=== PATIENT | female | born 1950 | race Caucasian/White ===

== ENCOUNTER 2017-03-04 12:58 | Inpatient (IN) ==
[2017-03-04] MEDS ORDERED: Ampicillin/Sulbactam 3,000 MG in 0.9 % Sodium Chloride Mini Bag 100 ML IVPB ONE (15:01)
[2017-03-04] MEDS ORDERED: Vancomycin 1,000 MG in D5% in Water 250 ML IVPB ONE (15:01)
--- NOTE | 2017-03-04 15:03 | Emergency Department Note ---
Disposition Clinical Impression: Dog bite of extremity Disposition: Admitted As Inpatient Condition: Fair Referrals: Christiano Ritchie MD [Primary Care Provider] - Time of Disposition: 15:20 ([facility]) Upper Extremity HPI - General Stated Complaint: dog bite R hand Time Seen by Provider: 03/04/17 14:50 Source: patient Mode of arrival: ambulatory Limitations: age Nursing Notes Reviewed: Yes Vital Signs Reviewed: Yes - History of Present Illness HPI Narrative: Patient bitten by her dog yesterday evening on the right hand now has red hot swollen hand with streaking up the arm has swelling and edema in the hand has little bit of decreased minimal range of motion but still has sensation intact patient states that it is not getting any better she thinks it may be infected as result she is here she does tell me that she has been chilling and fever and today Injury Location: Right: hand Onset (ago): day(s) Other Injuries: none Handedness: right Place: home, outdoors Pain Severity: moderate, severe Pain Scale: 8 Improves with: nothing Worsens with: movement of extremity, Palpation Context: animal bite Associated symptoms: Reports: swelling - Related Data Home Medications Medication Instructions Recorded Confirmed Losartan/Hydrochlorothiazide 1 each PO DAILY 01/08/16 03/04/17 [Hyzaar 100-12.5 Tablet] ALPRAZolam [Xanax 0.25 MG Tablet] 0.25 mg PO DAILY PRN 12/31/16 03/04/17 Amlodipine Besylate 2.5 mg PO DAILY 12/31/16 03/04/17 Celecoxib [Celebrex] 100 mg PO DAILY 12/31/16 03/04/17 Citalopram [CeleXA] 20 mg PO DAILY 12/31/16 03/04/17 Diclofenac Sodium [Voltaren] 100 gm TP QID PRN 12/31/16 03/04/17 Ezetimibe [Zetia] 10 mg PO QPM 12/31/16 03/04/17 Isosorbide MONOnitrate (24 HR) 30 mg PO DAILY 12/31/16 03/04/17 [Imdur] Metformin HCl [Glucophage Xr] 500 mg PO HS 12/31/16 03/04/17 Metoprolol XL (24 HR) Succ [Toprol 25 mg PO DAILY 12/31/16 03/04/17 Xl] Nitroglycerin 0.4 mg SL DAILY PRN 12/31/16 03/04/17 Omeprazole [PriLOSEC] 20 mg PO DAILY 12/31/16 03/04/17 Potassium Chloride [Klor-Con 10 meq PO BID 12/31/16 03/04/17 Sprinkle] Quetiapine Fumarate [Seroquel] 25 mg PO HS 12/31/16 03/04/17 Simvastatin [Zocor] 40 mg PO HS 12/31/16 03/04/17 Tramadol HCl [Ultram] 50 mg PO BID PRN 12/31/16 03/04/17 Allergies Allergy/AdvReac Type Severity Reaction Status Date / Time Sulfa (Sulfonamide AdvReac Nausea Verified 12/31/16 08:39 Antibiotics) Review of Systems: As Per HPI Constitutional: Reports: fever, weakness. Denies: chills Eyes: Denies: eye pain, eye discharge ENT ED: Denies: ear pain, throat pain Cardiovascular: Denies: chest pain, palpitations Respiratory: Denies: cough, dyspnea, wheezes Gastrointestinal: Denies: abdominal pain, nausea, vomiting Genitourinary: Denies: urgency, dysuria Musculoskeletal: Reports: joint swelling Integumentary: Reports: lesions Neurological: Denies: headache Psychiatric: Denies: anxiety Endocrine: Denies: fatigue Hematological/Lymphatic: Denies: easy bleeding Allergic/Immunologic: Denies: facial swelling Past Medical History - Past Medical History Attestation: Yes The following information was validated with the patient. Source: patient, old records reviewed, nursing notes reviewed Medical history: Reports: COPD, coronary artery disease, diabetes, GERD, hyperlipidemia, hypertension Surgical history: Reports: carotid endarterectomy, hysterectomy, orthopedic, other Psychiatric history: Reports: no psych history [employer] WORK[employer] history: Reports: no [employer] WORKER history - Social History Smoking Status: Former smoker Smokeless Tobacco Status: No Alcohol use: Reports: none Drug use: Reports: none Physical Exam - General Limitations: no limitations General appearance: alert, in no apparent distress, anxious - Head Head exam: atraumatic, normocephalic, normal inspection - Eye Eye exam: Present: normal appearance, PERRL, EOMI - ENT ENT exam: normal exam, normal oropharynx, mucous membranes moist, normal external ear exam - Neck Neck exam: Present: normal inspection, full ROM, trachea midline - Chest Chest inspection: Present: normal inspection, symmetric chest wall rise - Respiratory Respiratory exam: Present: normal lung sounds bilaterally - Cardiovascular Cardiovascular exam: Present: regular rate, normal rhythm, normal heart sounds - Abdominal Exam Abdominal exam: Present: soft, Non-Tender, normal bowel sounds. Absent: mass, pulsatile mass - Expanded Upper Extremity Exam Shoulder exam: Present: normal inspection, full ROM Arm exam: Present: normal inspection, full ROM Elbow exam: Present: normal inspection, full ROM, swelling, erythema Forearm/Wrist exam: Present: normal inspection, full ROM, swelling, erythema Hand exam: Present: normal inspection, full ROM, swelling, erythema, other ( Patient has full range of motion of both hands but has swelling and edema of the thenar eminence the thumb extending up the radial aspect of the forearm on the right hand side in comparison to the left it is consistent with the area of dog bite and cellulitis) Hand L/R front image: 1 - other (two puncture wound) Hand L/R back image: 1 - 2 puncture wounds 2 - Redness swelling and edema of the radial aspect of the hand and arm Neurosensory exam: Normal: radial nerve, ulnar nerve, median nerve Vascular exam: Normal: capillary refill, radial pulse, ulnar pulse - Expanded Lower Extremity Exam Hip/Pelvis exam: Present: normal inspection, full ROM Upper leg exam: Present: normal inspection, full ROM Knee exam: Present: normal inspection, full ROM Lower leg exam: Present: normal inspection, full ROM Ankle exam: Present: normal inspection, full ROM Foot/toe exam: Present: normal inspection, full ROM Neurovascular/Tendon exam: Present: normal capillary refill, normal fine/light touch. Absent: motor deficit, sensory deficit, tendon deficit Gait: observed and normal - Back Exam Back exam: Present: normal inspection, full ROM. Absent: muscle spasm - Neurological Exam Neurological exam: Present: alert, oriented X3, CN II-XII intact - Psychiatric Psychiatric exam: Present: normal affect, normal mood - Skin Skin exam: Present: warm, dry, intact, normal color Course Course Narrative: Seen and examined started on Unasyn and vancomycin will discuss with the hospitalist for admission - Reevaluation(s) Reevaluation #1: Spoke with Dr. Rutledge will repeat labs in the morning and if not showing any improvement then may have to transfer or consult orthopedics if continues to show further worsening patient is understanding admitted here Vital Signs Temperature 100.8 F H 03/04/17 15:07 Pulse Rate 80 03/04/17 15:07 Respiratory Rate 16 03/04/17 15:07 Blood Pressure 147/61 03/04/17 15:07 O2 Sat by Pulse Oximetry 96 03/04/17 15:07 Temperature 100.8 F H 03/04/17 15:07 Pulse Rate 80 03/04/17 15:07 Respiratory Rate 16 03/04/17 15:07 Blood Pressure 147/61 03/04/17 15:07 O2 Sat by Pulse Oximetry 96 03/04/17 15:07 Oxygen Delivery Oxygen Delivery Room Air Extremity Injury, Upper - Differential Diagnosis Differential Diagnosis: Likely: puncture wound - Medical Records Medical records reviewed: Yes I reviewed the patient's medical records. - Lab Data Lab results reviewed: Yes I reviewed the patient's lab results. Critical Care Time Critical Care Time: No
[2017-03-04 15:24] LABS: Basophils # 0.1 K/mcL (0.0-0.2); Basophils % 0.3 %; Eosinophils # 0.3 K/mcL (0.0-0.6); Eosinophils % 1.5 %; Hematocrit 40.1 % (35.3-44.9); Hemoglobin 13.6 g/dL (11.5-15.4); Immature Granulocytes % 0.5 % (0-4); Lymphocytes # 1.5 K/mcL (0.6-4.6); Lymphocytes % 8.5 %; Mean Corpuscular HGB Conc 33.9 g/dL (31.6-35.5); Mean Corpuscular Volume 94.4 fL (83.0-100.0); Mean Platelet Volume 10.3 fL (9.4-12.4); Monocytes # 1.5 K/mcL (0.0-1.3); Monocytes % 8.9 %; Platelet Count 219 K/mcL (140-400); Red Blood Count 4.25 M/mcL (3.82-4.97); Red Cell Distribution Width 12.6 % (11.5-14.5); Segmented Neutrophils % 80.3 %
[2017-03-04 15:32] LABS: Neutrophils # 13.7 K/mcL (1.6-8.9)
[2017-03-04 15:42] LABS: BUN/Creatinine Ratio 22 (6-26); Blood Urea Nitrogen 23 mg/dL (7-20); Calcium 10.4 mg/dL (8.6-10.8); Carbon Dioxide 29 mEq/L (19-29); Chloride 103 mEq/L (98-109); Glucose 97 mg/dL (70-99); Osmolality,Calculated 298 (280-300); Potassium 3.7 mEq/L (3.5-4.5); Sodium 142 mEq/L (136-145); eGFR For African Americans > 60 (> 60); eGFR For Non-African Americans 53 (> 60)
[2017-03-04] MEDS ORDERED: Ondansetron 4 MG/2 ML VIAL IVP PRN (16:45)
[2017-03-04] MEDS ORDERED: Acetaminophen 325 MG TABLET PO PRN (16:45)
[2017-03-04] MEDS ORDERED: Nitroglycerin 0.4 MG TAB.SUBL SL PRN (16:45)
[2017-03-04] MEDS ORDERED: Naloxone 0.4 MG/ML INJ IVP PRN (16:45)
[2017-03-04] MEDS: (Ezetimibe [Zetia] 10 MG) PO SCH (18:28)
[2017-03-04] MEDS: traMADol 50 MG TABLET PO PRN (18:30)
[2017-03-04] MEDS: *HR* Metformin 500 MG TABLET PO SCH (20:19)
[2017-03-04] MEDS: ALPRAZolam 0.25 MG TABLET PO PRN (20:20)
[2017-03-05] MEDS: traMADol 50 MG TABLET PO PRN ×3 (03:48→20:38)
[2017-03-05 05:38] LABS: Basophils % 0.3 %; Eosinophils # 0.4 K/mcL (0.0-0.6); Eosinophils % 2.7 %; Hematocrit 35.8 % (35.3-44.9); Hemoglobin 11.9 g/dL (11.5-15.4); Immature Granulocytes % 0.3 % (0-4); Lymphocytes # 1.5 K/mcL (0.6-4.6); Lymphocytes % 10.1 %; Mean Corpuscular HGB Conc 33.2 g/dL (31.6-35.5); Mean Corpuscular Hemoglobin 31.6 pg (28.0-33.3); Monocytes # 1.4 K/mcL (0.0-1.3); Monocytes % 9.6 %; Neutrophils # 11.1 K/mcL (1.6-8.9); Platelet Count 195 K/mcL (140-400); Red Blood Count 3.77 M/mcL (3.82-4.97); Red Cell Distribution Width 12.9 % (11.5-14.5)
[2017-03-05 05:50] LABS: Calcium 9.3 mg/dL (8.6-10.8); Potassium 3.5 mEq/L (3.5-4.5)
[2017-03-05] MEDS: amLODIPine 5 MG TABLET PO SCH (08:06)
[2017-03-05] MEDS: Metoprolol XL (24 HR) Succ 25 MG TAB.ER.24H PO SCH (08:06)
[2017-03-05] MEDS: Losartan/HCTZ 50-12.5 TABLET PO SCH (08:06)
[2017-03-05] MEDS: Isosorbide MONOnitrate (24 HR) 30 MG TAB.ER.24H PO SCH (08:08)
[2017-03-05] MEDS: Celecoxib 100 MG CAPSULE PO SCH (09:21)
[2017-03-05] MEDS: Ibuprofen 400 MG TABLET PO PRN ×3 (09:22→22:50)
--- NOTE | 2017-03-05 10:23 | Internal Med History&Physical ---
Date of Encounter: 03/05/17 Time of Encounter: 10:21 Assessment and Plan (1) Dog bite of extremity Current visit: Yes Status: Acute Patient had some infection started with erythema swelling the temperature increased white count was started on IV antibiotics and is already improved we will try at least 24 hours more of IV antibiotics and then switch her to by mouth discharge. Internal Medicine - H&P: HPI Chief complaint: Patient suffered a dog bite and she had erythema and fever yesterday. Admitted From: Emergency Dept Plans for Post Hospital Care: Home History of present illness: Ms. Lees is a 66 year old female [place] dog bite by her dog. She states that shots were up-to-date. She had redness swelling and fever when she presented to the emergency room with an increased white count. She was started on IV antibiotics. Is already improved Past Med Surg Social Fam HX - Past Medical History Medical history: COPD, coronary artery disease, diabetes, GERD, hyperlipidemia, hypertension Psychiatric history: no psych history - Past Surgical History Surgical History: carotid endarterectomy, hysterectomy, orthopedic, other - Social History Smoking Status: Former smoker Smokeless Tobacco Status: No Alcohol use: none Drug use: none - Family History Mother Living Status: Hx Family Cardiac Disorders: Yes ([place]) Father Living Status: Hx Family Cardiac Disorders: Yes ([place]) Internal Medicine - H&P: Meds Losartan/Hydrochlorothiazide [Hyzaar 100-12.5 Tablet] 1 each PO DAILY 01/08/16 [ History] ALPRAZolam [Xanax 0.25 MG Tablet] 0.25 mg PO DAILY PRN 12/31/16 [History] Amlodipine Besylate 2.5 mg PO DAILY 12/31/16 [History] Celecoxib [Celebrex] 100 mg PO DAILY 12/31/16 [History] Citalopram [CeleXA] 20 mg PO DAILY 12/31/16 [History] Diclofenac Sodium [Voltaren] 100 gm TP QID PRN 12/31/16 [History] Ezetimibe [Zetia] 10 mg PO QPM 12/31/16 [History] Isosorbide MONOnitrate (24 HR) [Imdur] 30 mg PO DAILY 12/31/16 [History] Metformin HCl [Glucophage Xr] 500 mg PO HS 12/31/16 [History] Metoprolol XL (24 HR) Succ [Toprol Xl] 25 mg PO DAILY 12/31/16 [History] Nitroglycerin 0.4 mg SL DAILY PRN 12/31/16 [History] Omeprazole [PriLOSEC] 20 mg PO DAILY 12/31/16 [History] Potassium Chloride [Klor-Con Sprinkle] 10 meq PO BID 12/31/16 [History] Quetiapine Fumarate [Seroquel] 25 mg PO HS 12/31/16 [History] Simvastatin [Zocor] 40 mg PO HS 12/31/16 [History] Tramadol HCl [Ultram] 50 mg PO BID PRN 12/31/16 [History] 3 Allergy/AdvReac Type Severity Reaction Status Date / Time Sulfa (Sulfonamide AdvReac Nausea Verified 12/31/16 08:39 Antibiotics) All Systems PM: A 10-system review of systems was performed and is negative for pertinent findings except as documented above in the HPI. - Constitutional Vitals: Temp Pulse Resp BP Pulse Ox 98.5 F 100 16 105/63 95 03/05/17 07:55 03/05/17 07:55 03/05/17 07:55 03/05/17 07:55 03/05/17 07:55 - Head Head exam: Present: atraumatic, normal inspection, normocephalic - Neck Neck exam general surgery: Present: supple, trachea midline. Absent: lymphadenopathy - Respiratory Respiratory exam: Present: CTAB. Absent: accessory muscle use, rales, rhonchi, wheezes - Cardiovascular Cardiovascular exam: Present: RRR, +S1, +S2. Absent: diastolic murmur, gallop, rubs, systolic murmur Internal Med - H&P Results - Labs CBC & Chem 7: 03/05/17 05:05 03/05/17 05:05 Labs: Short CBC 03/05/17 Range/Units 05:05 WBC 14.4 H (4.3-11.1) K/mcL Hgb 11.9 D (11.5-15.4) g/dL Hct 35.8 (35.3-44.9) % Plt Count 195 (140-400) K/mcL Neutrophils # 11.1 H (1.6-8.9) K/mcL BMP 03/05/17 05:05 Sodium 141 Potassium 3.5 Chloride 107 Carbon Dioxide 24 BUN 23 H Creatinine 1.10 Glucose 101 H Calcium 9.3 White count is down temperatures down
[2017-03-05] MEDS: Ampicillin/Sulbactam 3,000 MG in 0.9 % Sodium Chloride Mini Bag 100 ML IVPB SCH ×3 (11:38→22:51)
[2017-03-05] MEDS ORDERED: Vancomycin 1,250 MG in D5% in Water 250 ML IVPB SCH (16:00)
[2017-03-05] MEDS: (Ezetimibe [Zetia] 10 MG) PO SCH (18:49)
[2017-03-05] MEDS: ALPRAZolam 0.25 MG TABLET PO PRN (20:37)
[2017-03-05] MEDS: *HR* Metformin 500 MG TABLET PO SCH (20:37)
[2017-03-06] MEDS: Ampicillin/Sulbactam 3,000 MG in 0.9 % Sodium Chloride Mini Bag 100 ML IVPB SCH ×2 (06:05→11:48)
[2017-03-06] MEDS: traMADol 50 MG TABLET PO PRN (06:05)
[2017-03-06 09:02] VITALS: BP 126/70
[2017-03-06] MEDS: Isosorbide MONOnitrate (24 HR) 30 MG TAB.ER.24H PO SCH (09:30)
[2017-03-06] MEDS: Losartan/HCTZ 50-12.5 TABLET PO SCH (09:30)
[2017-03-06] MEDS: Celecoxib 100 MG CAPSULE PO SCH (09:30)
[2017-03-06] MEDS: Metoprolol XL (24 HR) Succ 25 MG TAB.ER.24H PO SCH (09:30)
[2017-03-06] MEDS: amLODIPine 5 MG TABLET PO SCH (09:31)
[2017-03-06 11:14] LABS: Basophils % 0.4 %; Eosinophils # 0.6 K/mcL (0.0-0.6); Eosinophils % 6.1 %; Hematocrit 34.4 % (35.3-44.9); Hemoglobin 11.6 g/dL (11.5-15.4); Immature Granulocytes % 0.3 % (0-4); Lymphocytes # 1.5 K/mcL (0.6-4.6); Mean Corpuscular HGB Conc 33.7 g/dL (31.6-35.5); Mean Corpuscular Hemoglobin 32.1 pg (28.0-33.3); Mean Corpuscular Volume 95.3 fL (83.0-100.0); Mean Platelet Volume 10.5 fL (9.4-12.4); Monocytes # 1.1 K/mcL (0.0-1.3); Monocytes % 10.3 %; Neutrophils # 7.1 K/mcL (1.6-8.9); Platelet Count 219 K/mcL (140-400); Red Blood Count 3.61 M/mcL (3.82-4.97); Red Cell Distribution Width 12.5 % (11.5-14.5); Segmented Neutrophils % 68.9 %
[2017-03-06] MEDS: Ibuprofen 400 MG TABLET PO PRN (11:34)
--- NOTE | 2017-03-06 13:57 | Discharge Summary ---
Date of Encounter: 03/06/17 Time of Encounter: 13:55 - Discharge Diagnosis (1) Dog bite of extremity Priority: Primary Status: Acute - Discharge Medications Home Medications: Losartan/Hydrochlorothiazide [Hyzaar 100-12.5 Tablet] 1 each PO DAILY 01/08/16 [ History] ALPRAZolam [Xanax 0.25 MG Tablet] 0.25 mg PO DAILY PRN 12/31/16 [History] Amlodipine Besylate 2.5 mg PO DAILY 12/31/16 [History] Celecoxib [Celebrex] 100 mg PO DAILY 12/31/16 [History] Citalopram [CeleXA] 20 mg PO DAILY 12/31/16 [History] Diclofenac Sodium [Voltaren] 100 gm TP QID PRN 12/31/16 [History] Ezetimibe [Zetia] 10 mg PO QPM 12/31/16 [History] Isosorbide MONOnitrate (24 HR) [Imdur] 30 mg PO DAILY 12/31/16 [History] Metformin HCl [Glucophage Xr] 500 mg PO HS 12/31/16 [History] Metoprolol XL (24 HR) Succ [Toprol Xl] 25 mg PO DAILY 12/31/16 [History] Nitroglycerin 0.4 mg SL DAILY PRN 12/31/16 [History] Omeprazole [PriLOSEC] 20 mg PO DAILY 12/31/16 [History] Potassium Chloride [Klor-Con Sprinkle] 10 meq PO BID 12/31/16 [History] Quetiapine Fumarate [Seroquel] 25 mg PO HS 12/31/16 [History] Simvastatin [Zocor] 40 mg PO HS 12/31/16 [History] Tramadol HCl [Ultram] 50 mg PO BID PRN 12/31/16 [History] Allergies/Adverse Reactions: 3 Allergy/AdvReac Type Severity Reaction Status Date / Time Sulfa (Sulfonamide AdvReac Nausea Verified 12/31/16 08:39 Antibiotics) Date of admission: 03/05/17 13:53 Primary care physician: Christiano Ritchie MD Discharging clinician: Panda Rutledge Anticipated date of discharge: 03/06/17 - Patient Status Disposition: Home, Self-Care Condition: Good Functional capacity at discharge: independent ambulation Overall status at discharge: patient is progressing back to baseline - Discharge Instructions Instructions: Animal Bite (DC) Follow Up With: prashant ritchie [Other] - 03/08/17 9:45 am (follow up appointment) Forms: ED Satisfaction Letter Additional Instructions: Follow-up appointments: If there is not an appointment listed below, please call your physician and schedule a follow-up appointment. If you have congestive heart failure and your symptoms return, make an appointment with your physician. Medication List: Carry an up to date list of medications you are taking at all time. We have given you an updated medication list including any new medications that you have been prescribed. Please provide that list to your primary provider Symptoms: If your condition changes or you experience any of the following symptoms, notify your physician immediately: Unusual or worsening pain, fever, persistent nausea and vomiting, bleeding, increase in swelling (especially in your legs), sudden weight gain, extreme dizziness, chest pain, increased drainage or redness from a wound or incision. Go to the emergency department if you experience a problem with breathing. Weights: If you have a history of swelling or shortness of breath, weigh yourself daily and notify your physician if you have a weight gain of two or more pounds in one day or 5 or more pounds in a week. If you experience any of the warning signs for stroke: Sudden numbness or weakness of the face, arm or leg; especially on one side of the body, sudden confusion, trouble speaking or understanding, sudden trouble seeing in one or both eyes, sudden trouble walking, dizziness, loss of balance or coordination, sudden sever headache with no cause; Call 911 or go to the emergency room. Stroke is a medical emergency. Some risk factors for stroke: Age, cigarette smoking, diabetes, excessive alcohol consumption, family history , high blood pressure, overweight, physical inactivity, prior stroke, heart attack, diagnosis of carotid artery stenosis or other artery disease. If you smoke, STOP: Smoking or tobacco use significantly increases your risk of heart and lung disease. Your chance of disease greatly increases if you continue to smoke. For more information, call the [place] tobacco quit line for smoking cessation - QUIT-NOW ( ) - Diet and Activity Activity: return to work once cleared by your PCP/specialist Diet: advance to your usual diet Interval History: Patient presented to the emergency room about 24 hours postop bite. She had a low-grade temperature white count and tenderness with erythema. She probably also had a little bit of lymphadenopathy. Hospital course: Ms. Lees is a 66 year old female She received IV antibiotics for 48 hours at a dose today prior to discharge. I am sending her home on Augmentin by mouth twice a day for week the redness has resolved the temperature is resolved white counts down and there is just some minimal swelling. - Time Spent with Patient Total time spent providing and/or coordinating discharge services: Less than 30 minutes - Constitutional Vitals: Temp Pulse Resp BP Pulse Ox 97.5 F L 69 16 126/70 95 03/06/17 09:01 03/06/17 09:01 03/06/17 09:01 03/06/17 09:01 03/06/17 09:01 - Head Head exam: Present: atraumatic, normal inspection, normocephalic - Neck Neck exam general surgery: Present: supple, trachea midline. Absent: lymphadenopathy - Respiratory Respiratory exam: Present: CTAB. Absent: accessory muscle use, rales, rhonchi, wheezes - Cardiovascular Cardiovascular exam: Present: RRR, +S1, +S2. Absent: diastolic murmur, gallop, rubs, systolic murmur - VTE Reasons for not Prescribing Prophylaxis: Treatment not Indicated - Low risk for VTE
== END 2017-03-06 14:00 | disposition home or self-care (01) | DRG 638 ==
LOC: EMEROOGRE 12:58 → INPGRE 12:58
PROVIDERS: ADMIT Internal Medicine; ATTEND Internal Medicine